=== PATIENT | male | born 1970 | race African-American/Black ===

== ENCOUNTER 2023-11-01 06:26 | Day surgery (SDC) | payer MEDICARE, OTHER, SELFPAY ==
[2023-11-01] VITALS (7 sets, daily range): BP systolic 100–126; BP diastolic 70–87; BMI 32.2
[2023-11-01 09:50] LABS: Glucose - Point of Care 93 mg/dl (70-99)
[2023-11-01] MEDS: NORMOSOL-R 1000 IV (09:51)
== END 2023-11-01 13:40 | disposition home or self-care (01) ==
LOC: SDS 06:26
PROVIDERS: ATTENDING PHYSICIAN Urology
DX: N32.81 Overactive bladder (principal); N31.9 Neuromuscular dysfunction of bladder, unspecified; R35.0 Frequency of micturition
CPT/HCPCS: 64595; 64585; 82962